=== PATIENT | male | born 1985 | race Caucasian/White ===

== ENCOUNTER → 2021-03-31 | Outpatient (CLI) | payer BC | LOC: KOH-I 15:35 | DX: M79.641 Pain in right hand (principal) | CPT/HCPCS: 73130 ==

== ENCOUNTER 2021-12-23 10:16 | Emergency (ER) | payer OTHER, BC ==
[2021-12-23 11:01] LABS: RED BLOOD COUNT 5.3 M/UL (4.20-5.50); WHITE BLOOD COUNT 6.5 K/UL (4.5-11.0)
[2021-12-23 12:06] LABS: BUN/CREATININE RATIO 11 (0-10)
== END 2021-12-23 13:25 | disposition home or self-care (01) ==
LOC: ER1 10:16
PROVIDERS: Family Medicine
DX: S39.011A Strain of muscle, fascia and tendon of abdomen, initial encounter (principal); S76.011A Strain of muscle, fascia and tendon of right hip, initial encounter; S29.011A Strain of muscle and tendon of front wall of thorax, initial encounter; S30.0XXA Contusion of lower back and pelvis, initial encounter; F17.290 Nicotine dependence, other tobacco product, uncomplicated; Z88.0 Allergy status to penicillin; V43.52XA Car driver injured in collision with other type car in traffic accident, initial encounter; Y92.410 Unspecified street and highway as the place of occurrence of the external cause; W22.10XA Striking against or struck by unspecified automobile airbag, initial encounter
CPT/HCPCS: 71260; 80053; 82550; 82553; 84484; 85025; 93005; 99284; Q9967